=== PATIENT | female | born 1975 | race Caucasian/White ===

== ENCOUNTER 2022-10-21 16:14 | Outpatient (CLI) | payer OTHER, SELFPAY ==
--- NOTE | 2022-10-21 16:15 | CRLHL7_ITS ---
For Patients: As a result of the Century Cures Act, medical imaging exams and procedure reports are released immediately into your electronic medical record. You may view this report before your referring provider. If you have questions, please contact your health care provider. BILATERAL SCREENING MAMMOGRAM WITH COMPUTER-AIDED DETECTION AND TOMOSYNTHESIS TECHNIQUE: CC and MLO views were obtained. These mammographic images have been obtained using full-field digital technique. These mammographic images were interpreted with the benefit of computer-aided detection. Breast Tomosynthesis was used in this interpretation. COMPARISON FILM: 06/28/21, 12/26/19, 09/30/18. FINDINGS: There are scattered areas of fibroglandular density IMPRESSION: There is no radiographic evidence for malignancy. ASSESSMENT: BI-RADS Category 1: Negative RECOMMENDATION: Routine screening mammogram in 1 year. A lay language report of this examination will be provided to the patient. Steve Malone M.D. Diagnostic Radiologist [email or web address] NOMAN/gala cedeño/Dictated by: Steve Mlaone MD @ 10/22/2022 8:59:00 AM (Electronically Signed)
== END 2022-10-21 16:15 | disposition home or self-care (01) ==
LOC: MAMMO 16:15
PROVIDERS: PCP Family Medicine; Visit Provider Physician Assistant
DX: Z12.31 Encounter for screening mammogram for malignant neoplasm of breast (principal)
CPT/HCPCS: 77063; 77067

== ENCOUNTER 2023-09-16 14:00 | Outpatient (RCR) | payer OTHER, SELFPAY ==
--- NOTE | 2023-08-26 16:15 | OT.OPOE ---
OT Outpatient Ortho Eval OT Outpatient Ortho Eval* Start: 08/26/23 15:12 Freq: Status: Active Protocol: Document 08/26/23 15:26 LCN (Rec: 08/26/23 16:01 LCN [id number]) E-signed By Kamila Paris, OTR/L, CLT OT OP Ortho Eval Details Complexity Complexity Low Insurance Information Insurance Information [facility] History/Precautions Current Condition/Medical Diagnosis Referring Provider Dr Lange Treatment Diagnosis B hand pain, L side more affected Date of Onset 07/31/23 Other Conditions OA and RA both run in her family. 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 She has been having more hand and thumb pain over he past 3 months, mostly on L side at thumb IP and 1st MCP of IF. R has generalized hand achiness and stiffness. Uses thumbs a lot on phone for reading and Duolingo, but does use a D loop on the back.. Feeling weak when opening jars/bottles/food packaging. Heat feels good, cold is irritating. X ray negative for OA changes at this time. Pt declined RA blood testing for now. Pain Assessment Pain Present Pain Present Pain Reported Location B hands Description Tightness,Pressure,Dull, Achy Intensity 3 Range of Motion and Strength Hand/Finger/Thumb Range of Motion and Strength Hand/Finger/Thumb Range of Motion and WNL WRist motion B, slight Strength reduction in L wrist flexion to 80 of 90, no pain with pover pressure. Makes hook, table and full fist WNL. Kepangi opposition of B thumbs is 10/10 and retropulsion in 4/4. Does have CMC squaring B, non tender. Has some buckling at CM during scrub test, no crepitus, non painful. Demonstrates hyper extnsion of MP to 20 degrees and hyper flexes IP to 90 degrees of 50 degrees (start of Z deformity of B thumbs during 3 pt pinch testing, with 2/10 tender at L IP). Demonstrates hyperextension at MCP and DIP of index finger while pressing buttons OT Problems Problems Problems Pain,Lifting,Gripping,Pinching Other Problems Opening Containers,Fasteners Patient Potential Excellent Assessment Assessment Assessment Alison is having stiffness/edema , pain, and some OA pattern joint stability issues affecting B hands, thumbs ( moreso on the L, is R hand dominant) that is limiting daily gripping pinching, tearing motions. She would benefit from skilled OT to address these areas. Occupational Therapy Treatment Plan - OP Potential Rehabilitation Potential Excellent Set Goals Goals Set with Patient Yes Goals Goals In 8 weeks, Alison will demonstrate:? 1) Decreased pn to <2/10 80% of the time with sustained gripping, carrying groceries, reading books and weeding. 2) I HEP for stretching, gradual strengthening, joint protection, task adatpation and self mgmt strategies. 3) improved 3 pt pinch to 18# with L thumb pain < 1/10. 4)??Pt to be fit with functional bracing (for CMC/MP stabilization during heavy tasks) and use adaptive strategies to protect joint integrity to support less pain with ADL. Target Date 11/25/23 Treatment Plan Treatment Plan Evaluation,Edema Control,Joint Mobilization,Manual Therapy, Ultrasound,Therapeutic Exercise,Self Care/Home Management,Education Expected Frequency 1-2x Week Expected Duration 4-6 Weeks Home Program Home Program Home Program Initiated Home Program Specifics Joint blocking exercises for thumbs.
== END 2024-01-14 23:59 | disposition home or self-care (01) ==
PROVIDERS: PCP Family Medicine; Visit Provider Family Medicine
DX: M79.641 Pain in right hand (principal); M79.642 Pain in left hand; Z51.89 Encounter for other specified aftercare
CPT/HCPCS: 97035; 97110; 97140; 97165; 97535; X5282

== ENCOUNTER 2023-12-18 09:03 | Outpatient (CLI) | payer OTHER, SELFPAY ==
--- NOTE | 2023-12-18 09:15 | MM_ITS ---
Patient: JAILYN CHRISTIAN Facility:?[facility] Patient ID:?[id number] Site Patient ID:?[id number] Site :?[id number] Study:?XRay-Breast Bilateral 3D screening mammogram w/cad-12/18/2023 9:40:04 AM Ordering Physician:MIREYA Final Report: BILATERAL SCREENING MAMMOGRAM WITH COMPUTER-AIDED DETECTION AND TOMOSYNTHESIS TECHNIQUE: CC and MLO views were obtained. These mammographic images have been obtained using full-field digital technique. These mammographic images were interpreted with the benefit of computer-aided detection. Breast Tomosynthesis was used in this interpretation. COMPARISON FILM: 10/21/22, 06/28/21, 12/26/19. FINDINGS: There are scattered areas of fibroglandular density. IMPRESSION: There is no radiographic evidence for malignancy. ASSESSMENT: BI-RADS Category 1: Negative RECOMMENDATION: Routine screening mammogram in 1 year. A lay language report of this examination will be provided to the patient. Steve Malone M.D. Diagnostic Radiologist [email or web address] DSM/sp R& Transcribed: 3:26 p.m. SP/Dictated by: Steve Malone MD @ 12/18/2023 1:13:00 PM Signed by:?Steve Malone MD @12/18/2023 3:54:30 PM (Electronic Signature)
== END 2023-12-18 09:04 | disposition home or self-care (01) ==
LOC: MAMMO 09:03
PROVIDERS: PCP Family Medicine; Visit Provider Physician Assistant
DX: Z12.31 Encounter for screening mammogram for malignant neoplasm of breast (principal)
CPT/HCPCS: 77063; 77067